=== PATIENT | female | born 1995 | race Caucasian/White ===

== ENCOUNTER → 2016-03-30 | Outpatient (CLI) | payer BC ==
--- NOTE | 2016-03-30 13:59 | DIAGNOSTIC IMAGING REPORT ---
FLUOROSCOPICALLY GUIDED LEFT HIP ARTHROGRAM PRIOR TO MRI CLINICAL HISTORY: Left hip pain. COMPARISON STUDY: Left hip radiographs March 30, 2016. FLUOROSCOPY TIME: 24 seconds. FINDINGS: 1 fluoroscopic image was obtained. The procedure, risks and benefits were discussed with the patient and informed written consent was obtained. The procedure was performed by Dr. Lujan following a timeout. Skin overlying the left hip joint was prepped and draped in sterile fashion and local anesthesia was achieved with 1% lidocaine. Under intermittent fluoroscopic guidance, a 3 half-inch, 22-gauge spinal needle was directed into the left hip joint. Positioning within the joint space was confirmed with injection of a small amount of contrast. At this time, 9 cc of a mixture of 0.1 cc of gadolinium, 10 cc of normal saline and 10 cc of Optiray 300 was injected into the left hip joint. The needle was removed. The patient tolerated the procedure well and no immediate complications were evident. The patient was transported to MRI. IMPRESSION: Fluoroscopically guided left hip arthrogram prior to MRI. Electronically signed by: Donovan Lujan M.D. 03/30/2016 1:57 PM Dictated Date/Time: 03/30/2016 1:56 PM
--- NOTE | 2016-03-30 14:19 | DIAGNOSTIC IMAGING REPORT ---
MRI ARTHROGRAM OF THE LEFT HIP CLINICAL HISTORY: Persistent left hip pain. COMPARISON STUDY: Left hip radiographs performed earlier today. TECHNIQUE: Following a fluoroscopically guided left hip arthrogram and utilizing a 1.5 Tesha magnet, multiplanar, multi echo imaging of the left hip was performed without intravenous contrast. FINDINGS: There is adequate distention of the joint space by dilute gadolinium. There is mild to moderate cartilage space loss with mild subchondral signal abnormality within the left femoral head and the adjacent acetabulum. The acetabulum is slightly shallow. There is mild osteophytosis of the left hip. There is no convincing evidence for avascular necrosis. No mass or fluid collection shown adjacent to the left hip. The anterior superior acetabular labrum is diminutive. There is signal within the labrum. This may reflect a labral tear. No mass or fluid collection is shown adjacent to the left hip. No marrow replacement is present. IMPRESSION: 1. Mildly shallow left acetabulum with osteophytosis of the left hip. Mild to moderate cartilage space loss with subchondral signal abnormality within the left femoral head and acetabulum. The findings suggest arthritis and likely account for the patient's pain. 2. Somewhat diminutive anterior superior labrum which contains abnormal signal. This may reflect a labral tear. Electronically signed by: Donovan Lujan M.D. 03/30/2016 2:18 PM Dictated Date/Time: 03/30/2016 2:08 PM
--- NOTE | 2016-03-30 14:29 | DIAGNOSTIC IMAGING REPORT ---
LEFT HIP UNILATERAL 2 VIEWS CLINICAL HISTORY: Left hip pain. COMPARISON: None FINDINGS: Alignment of left hip is anatomic. The acetabulum is slightly shallow. There is osteophytosis of the left hip. Joint space is preserved. No fracture or suspicious lesion is identified. There is no radiographic evidence of avascular necrosis of the left femoral head. IMPRESSION: 1. Mild osteophytosis of the left hip with a slightly shallow acetabulum. 2. No acute fracture. Electronically signed by: Donovan Lujan M.D. 03/30/2016 2:27 PM Dictated Date/Time: 03/30/2016 1:59 PM
== END | disposition home or self-care (01) ==
LOC: C.MRIBC 12:54
PROVIDERS: ATTEND Family Medicine Sports Medicine
DX: M25.552 Pain in left hip (principal); M25.752 Osteophyte, left hip